=== PATIENT | male | born 2000 | race Caucasian/White ===

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

== ENCOUNTER 2020-06-06 15:32 | Inpatient (IN) ==
[2020-06-06] MEDS ORDERED: DEXAMETHASONE SOD INJ 10 MG/ML VIAL IV ONE (15:50)
[2020-06-06] MEDS ORDERED: SODIUM CHLORIDE 0.9% 1000ML 500 ML IV ONE (15:50)
[2020-06-06] MEDS ORDERED: ALBUTEROL HFA 8 GM INHALER INH ONE (15:50)
--- NOTE | 2020-06-06 16:34 | Emergency Department Note ---
Impression & Plan Hypoxia, SOB (shortness of breath), Leukocytosis, Pneumonia ED Provider Note NAME: JAZZY MCKINNEY AGE: 19 SEX: M : 2000 ARRIVES VIA: Walk-In INFORMANT: [Patient] ED PROVIDER(S): [Garo Escamilla MD] CHIEF COMPLAINT: Cough HISTORY OF PRESENT ILLNESS: The patient is a 19-year-old male presents to the ED with several days of a cough. The cough is worse when he tries to lay down at night. The cough is productive. Patient has also noticed shortness of breath, primarily with exertion. Patient denies any fever or chills. There is no sore throat or stuffy nose. No abdominal pain. No vomiting or diarrhea. Patient states that he did have Covid a few months ago, he was basically asymptomatic except for issues with his taste and smell, he was also somewhat fatigued with the Covid diagnosis. The patient presented today to [facility]. He was hypoxic on their monitor and sent to the ED by ambulance for evaluation. The patient states that he does not feel the same as he did when he had COVID-19 a few months ago. He does admit that his taste and smell is off a bit currently but it is still present. He has had no sick contacts. REVIEW OF SYSTEMS: See HPI for pertinent positives and negatives. A total of ten systems were reviewed and were otherwise negative. PMHx/PSHx: See Below SOCIAL HISTORY: See Below. PHYSICAL EXAM: GENERAL: Patient is in no acute distress. HEENT: No acute trauma, normocephalic atraumatic, mucous membranes moist, no nasal congestion, no scleral icterus. NECK: No stridor, no adenopathy, no meningismus, trachea is midline. LUNGS: No respiratory distress. No obvious wheeze, slightly increased respiratory rate. HEART: Tachycardic, regular rhythm, no murmur. ABDOMEN: Soft, nontender, bowel sounds positive, no hernias, no peritonitis. EXTREMITIES: No cyanosis or edema, full range of motion of all the joints without pain or difficulty, no signs for acute trauma. NEUROLOGIC: Oriented x 3, no acute motor or sensory deficits, no focal weakness. SKIN: No rash, no jaundice, no diaphoresis. DIFFERENTIAL DIAGNOSIS: Reactive airway disease, pneumonia, pneumothorax, COVID-19, influenza, COPD, CHF, infection, cardiac ischemia, pulmonary embolism, bronchitis, musculosk eletal, gastrointestinal, as well as other pathologies. EMERGENCY DEPARTMENT COURSE/PROCEDURES: ECG: Indication was shortness of breath. The ECG shows a normal sinus rhythm with a rate of 98. There is some subtle ST elevation consistent with potential early repole. There appears to be some MS depression present as well. The QTc is 457. There are no PVCs. No old ECGs available for comparison. Continuous Cardiac Monitoring: An order was placed for continuous cardiac monitoring. The monitor shows a rate of 99 with normal sinus rhythm. Critical Care Note: I have personally spent 42 minutes of critical care time in the direct management of this patient. This includes bedside care, interpretation of diagnostic studies, and testing, discussion with consultants, patient, and family members, and other required patient management activities. This 42 minutes is in excess of all separately billable procedures. MEDICAL DECISION MAKING: There is a moderate leukocytosis which would be consistent with infection. No anemia. There is a normal platelet count. INR is mildly elevated at 1.3. No significant electrolyte abnormality or kidney failure. No concerning liver e nzyme elevation. ECG shows a sinus rhythm, no acute ischemia. Cardiac enzyme testing x1 is slightly elevated, this could be consistent with cardiac injury, mismatch or cardiac strain. Covid, influenza and RSV testing were negative. Chest film shows a bilateral patchy pneumonia. Chest CT does not show any PE, bilateral pneumonia was seen. The patient presents tachypneic and short of breath. He was hypoxic. He was maintained on nasal cannula O2. He received a 500 cc saline bolus. He was given IV ceftriaxone, albuterol via MDI, IV Decadron. The patient is aware of his findings, I did speak with him about our work-up results. I spoke with case management, the on-call hospitalist was consulted. With his hypoxia and pneumonia, hospitalization is warranted. Past Med/Surg History Medical History COVID-19 Family History (Updated 06/06/20 @ 18:57 by Justa Quijano DO) Denies family history of Myocardial infarction Stroke Social History Smoking Status: Never smoker Hx Alcohol Use: Yes Alcohol Intake Frequency Comment: 1-2x/week, none recently with feeling unwell Hx Substance Use: Yes Substance Use Type Other:: Occasional marijuana use, but not recently due to feeling unwell Feels Safe at Home: Yes Allergies Allergies Allergy/AdvReac Type Severity Reaction Status Date / Time cat dander Allergy Mild Itchiness Verified 06/06/20 16:02 No Known Drug Allergies Allergy . Verified 06/06/20 16:02 Home Meds Home Medications Medication Instructions Recorded Confirmed No Known Home Medications 06/06/20 06/06/20 Results & Data (ED) Vital Signs Vital Signs - 24 hr 06/06/20 15:35 06/06/20 15:59 06/06/20 16:01 Temperature 36.6 C Temperature Source Oral Pulse Rate 130 H 113 H Pulse Rate from SpO2 Sensor 111 H Pulse Rhythm Regular Pulse Strength Normal Respiratory Rate 22 22 Respiratory Effort / Characteristics Non-Labored Respiratory Depth Normal Respiratory Pattern Regular Blood Pressure 109/63 Blood Pressure Mean 78 Blood Pressure Position Sitting Pulse Oximetry 86 L 88 L 84 L Oxygen Delivery Method Room Air Room Air Room Air Nasal Cannula Oxygen Flow Rate Sepsis Recent Fever Within 48 Hours No Sepsis New/Unexplained Change in Mental Status No Sepsis Action Taken by Nursing No Action Required Oxygen Flow Rate - Titration 6 Pulse Oximetry Post Tiitration 94 06/06/20 16:30 06/06/20 16:41 06/06/20 17:00 Temperature Temperature Source Pulse Rate 103 H 118 H Pulse Rate from SpO2 Sensor 101 H 109 H Pulse Rhythm Pulse Strength Respiratory Rate 22 25 H Respiratory Effort / Characteristics Respiratory Depth Respiratory Pattern Blood Pressure 133/75 108/78 Blood Pressure Mean 94 88 Blood Pressure Position Pulse Oximetry 93 94 97 Oxygen Delivery Method Nasal Cannula Nasal Cannula Nasal Cannula Oxygen Flow Rate 6 6 6 Sepsis Recent Fever Within 48 Hours Sepsis New/Unexplained Change in Mental Status Sepsis Action Taken by Nursing Oxygen Flow Rate - Titration Pulse Oximetry Post Tiitration 06/06/20 17:30 06/06/20 17:40 06/06/20 18:00 Temperature Temperature Source Pulse Rate 105 H 100 H Pulse Rate from SpO2 Sensor 102 H 102 H 99 H Pulse Rhythm Pulse Strength Respiratory Rate 21 24 25 H Respiratory Effort / Characteristics Respiratory Depth Respiratory Pattern Blood Pressure 133/83 Blood Pressure Mean 99 Blood Pressure Position Pulse Oximetry 93 92 93 Oxygen Delivery Method Nasal Cannula Nasal Cannula Oxygen Flow Rate 6 4 Sepsis Recent Fever Within 48 Hours Sepsis New/Unexplained Change in Mental Status Sepsis Action Taken by Nursing Oxygen Flow Rate - Titration Pulse Oximetry Post Tiitration Home Medications Current Medication List: was personally reviewed by me Laboratory Data Attestation: I reviewed the patient's lab results. Result diagrams: 06/06/20 16:50 06/06/20 16:50 Lab Results 06/06/20 06/06/20 06/06/20 Range/Units 16:05 16:05 16:50 WBC (4.8-10.8) K/uL RBC (4.7-6.1) M/uL Hgb (14.0-18.0) g/dL Hct (42-52) % MCV (80-100) fL MCH (25-34) pg MCHC (32-36) g/dL RDW Std Deviation (36.4-46.3) fL RDW Coeff of Jose (11.5-14.5) % Plt Count (130-400) K/uL MPV (7.4-10.4) fL Immature Gran % (Auto) % Neut % (Auto) % Lymph % (Auto) % Weston % (Auto) % Eos % (Auto) % Baso % (Auto) % Neut # (Auto) (1.4-6.5) K/uL Lymph # (Auto) (1.2-3.4) K/uL Weston # (Auto) (0.11-0.59) K/uL Eos # (Auto) (0-0.5) K/uL Baso # (Auto) (0-0.2) K/uL Immature Gran # (Auto) (0.00-0.02) K/uL PT (9.0-12.0) Seconds INR (0.9-1.1) APTT (21.0-31.0) Seconds PTT Ratio Sodium 141 (136-145) mmol/L Potassium 4.0 (3.5-5.1) mmol/L Chloride 109 H (98-107) mmol/L Carbon Dioxide 28 (21-32) mmol/L Anion Gap 4.0 (3-11) BUN 14 (7-18) mg/dl Creatinine 0.90 (0.6-1.4) mg/dl Est Cr Clr Drug Dosing 121.4 ml/min Est GFR ( Amer) 141.0 Est GFR (Non-Af Amer) 121.7 BUN/Creatinine Ratio 15.9 (10-20) Glucose 89 (70-99) mg/dl Calcium 9.3 (8.5-10.1) mg/dl Magnesium 2.4 (1.8-2.4) mg/dl Total Bilirubin 0.8 (0.2-1) mg/dl AST 12 L (15-37) U/L ALT 22 (12-78) U/L Alkaline Phosphatase 79 (45-117) U/L Troponin I 0.055 H* (0-0.045) ng/ml Total Protein 8.1 (6.4-8.2) gm/dl Albumin 3.9 (3.4-5.0) gm/dl Globulin 4.2 H (2.5-4.0) gm/dl Albumin/Globulin Ratio 0.9 (0.9-2) COVID-19 Eval Order CovFluRsv at [facility] SARS-CoV-2 (PCR) NEGATIVE (Negative) Influenza Type A (PCR) Negative (Neg) Influenza Type B (PCR) Negative (Neg) RSV (RT-PCR) Negative (Neg) 06/06/20 06/06/20 Range/Units 16:50 16:50 WBC 15.46 H (4.8-10.8) K/uL RBC 5.42 (4.7-6.1) M/uL Hgb 16.7 (14.0-18.0) g/dL Hct 47.3 (42-52) % MCV 87.3 (80-100) fL MCH 30.8 (25-34) pg MCHC 35.3 (32-36) g/dL RDW Std Deviation 44.7 (36.4-46.3) fL RDW Coeff of Jose 14.0 (11.5-14.5) % Plt Count 260 (130-400) K/uL MPV 10.0 (7.4-10.4) fL Immature Gran % (Auto) 0.7 % Neut % (Auto) 46.3 % Lymph % (Auto) 11.7 % Weston % (Auto) 5.5 % Eos % (Auto) 35.3 % Baso % (Auto) 0.5 % Neut # (Auto) 7.16 H (1.4-6.5) K/uL Lymph # (Auto) 1.81 (1.2-3.4) K/uL Weston # (Auto) 0.85 H (0.11-0.59) K/uL Eos # (Auto) 5.45 H (0-0.5) K/uL Baso # (Auto) 0.08 (0-0.2) K/uL Immature Gran # (Auto) 0.11 H (0.00-0.02) K/uL PT 13.3 H (9.0-12.0) Seconds INR 1.3 H (0.9-1.1) APTT 35.3 H (21.0-31.0) Seconds PTT Ratio 1.3 Sodium (136-145) mmol/L Potassium (3.5-5.1) mmol/L Chloride (98-107) mmol/L Carbon Dioxide (21-32) mmol/L Anion Gap (3-11) BUN (7-18) mg/dl Creatinine (0.6-1.4) mg/dl Est Cr Clr Drug Dosing ml/min Est GFR ( Amer) Est GFR (Non-Af Amer) BUN/Creatinine Ratio (10-20) Glucose (70-99) mg/dl Calcium (8.5-10.1) mg/dl Magnesium (1.8-2.4) mg/dl Total Bilirubin (0.2-1) mg/dl AST (15-37) U/L ALT (12-78) U/L Alkaline Phosphatase (45-117) U/L Troponin I (0-0.045) ng/ml Total Protein (6.4-8.2) gm/dl Albumin (3.4-5.0) gm/dl Globulin (2.5-4.0) gm/dl Albumin/Globulin Ratio (0.9-2) COVID-19 Eval Order SARS-CoV-2 (PCR) (Negative) Influenza Type A (PCR) (Neg) Influenza Type B (PCR) (Neg) RSV (RT-PCR) (Neg) Administered Medications Discontinued Medications Albuterol (Albuterol Hfa 8 Gm Inhaler) 3 puffs INH NOW ONE Stop: 06/06/20 15:51 Last Admin: 06/06/20 16:49 Dose: 3 puffs Documented by: [id number] Dexamethasone (Dexamethasone Sod Inj 10 Mg/Ml Vial) 6 mg IV NOW ONE Stop: 06/06/20 15:51 Last Admin: 06/06/20 16:49 Dose: 6 mg Documented by: [id number] Sodium Chloride (Nss 1000ml) 500 mls @ 999 mls/hr IV .Q31M ONE Stop: 06/06/20 16:20 Last Infusion: 06/06/20 18:46 Dose: 0 mls/hr Documented by: [id number] Admin: 06/06/20 18:08 Dose: 999 mls/hr Documented by: [id number] Ceftriaxone Sodium (Rocephin) 1,000 mg in 50 mls @ 100 mls/hr IV NOW STA Stop: 06/06/20 17:51 Last Infusion: 06/06/20 18:37 Dose: 0 mls/hr Documented by: [id number] Admin: 06/06/20 18:07 Dose: 100 mls/hr Documented by: [id number] Ioversol (Optiray 320 125ml) 116 ml IV ONCE ONE Stop: 06/06/20 17:55 Last Admin: 06/06/20 17:55 Dose: 116 ml Documented by: [id number] Imaging Data Radiologist's Impression: XR chest 1V portable HISTORY: 19 years-old Male SOB acute shortness of breath COMPARISON: None TECHNIQUE: Portable view the chest FINDINGS: Cardiac silhouette is normal. No pneumothorax, pleural effusion or overt pulmonary edema. Ill-defined pulmonary opacities are noted within the mid and lower lung zones. Bones appear normal. No opaque foreign body. IMPRESSION: Opacities of the mid and lower lung zones bilaterally suggests multifocal pneumonia. CT angio chest PE protocol CT DOSE: 421.22 mGy.cm HISTORY: 19 years-old Male with PE. Acute shortness of breath TECHNIQUE: Multiple CTA images of the chest were obtained after the intravenous administration of 116 ml Optiray 320. Coronal and sagittal MIPS were obtained from the axial data set and were submitted for review. All measurements were obtained according to NASCET criteria. A dose lowering technique was utilized adhering to the principles of ALARA. COMPARISON: Chest radiograph of same day FINDINGS: CTA: Heart is normal in size. No pericardial effusion. There is no thoracic aortic aneurysm or dissection. Patency of the imaged great vessels. The pulmonary arterial tree is opacified to the level of the segmental branches and demonstrates no filling defects to suggest thromboembolic disease. The subsegm ental branches are not well visualized secondary to contrast bolus timing. CT CHEST: Unremarkable thyroid. Residual thymic tissue of the anterior mediastinum. Mildly enlarged subcarinal and hilar lymph nodes measure up to 11 mm in short axis. No pleural effusion or pneumothorax. Patchy multifocal groundglass and consolidative opacities are noted within all lobes bilaterally. Bronchial wall thickening is noted with tracheobronchial secretions and bibasilar mucous plugging. No acute process of the imaged upper abdomen. Bones appear intact. Unremarkable soft tissues. IMPRESSION: 1. No pulmonary emboli. 2. Multilobar distribution of patchy groundglass and alveolar opacities compatible with multifocal pneumonia 3. Mildly enlarged mediastinal and hilar lymph nodes are likely reactive. 4. Bronchial wall thickening with bibasilar predominant mucus plugging. Discharge Plan Visit Data Chief Complaint: Illness Stated Complaint: COUGH/SOB/TESTED FOR COVID AWAITING RESULTS ED Provider: Garo Escamilla Discharge Problem: Hypoxia, SOB (shortness of breath), Leukocytosis, Pneumonia Patient Disposition: Admitted As Inpatient Condition: Fair Forms Stand Alone Forms: [employer] Prescriptions Prescriptions: No Action No Known Home Medications RF: 0 Referrals Referrals: [place] [Primary Care Provider] - Discharge Problem: Leukocytosis Qualifiers: Leukocytosis type: unspecified Qualified Code(s): D72.829 - Elevated white blo od cell count, unspecified Pneumonia Qualifiers: Pneumonia type: due to unspecified organism Laterality: bilateral Lung location: unspecified part of lung Qualified Code(s): J18.9 - Pneumonia, unspecified organism
[2020-06-06 16:59] LABS: Influenza A virus by PCR Negative (Neg); Influenza B virus by PCR Negative (Neg); RSV by PCR Negative (Neg); SARS CoV2 RNA(COVID-19) InHosp NEGATIVE (Negative)
[2020-06-06 17:02] LABS: Basophils # (auto) 0.08 K/uL (0-0.2); Basophils % (auto) 0.5 %; Eosinophils # (auto) 5.45 K/uL (0-0.5); Eosinophils % (auto) 35.3 %; Hematocrit (blood only) 47.3 % (42-52); Hemoglobin 16.7 g/dL (14.0-18.0); Immature Granulocytes # (auto) 0.11 K/uL (0.00-0.02); Immature Granulocytes % (auto) 0.7 %; Lymphocytes # (auto) 1.81 K/uL (1.2-3.4); Lymphocytes % (auto) 11.7 %; Mean Corpuscular Hemoglobin 30.8 pg (25-34); Mean Corpuscular Hgb Conc 35.3 g/dL (32-36); Mean Corpuscular Volume 87.3 fL (80-100); Monocytes # (auto) 0.85 K/uL (0.11-0.59); Monocytes % (auto) 5.5 %; Neutrophils # (auto) 7.16 K/uL (1.4-6.5); Neutrophils % (auto) 46.3 %; Platelet Count 260 K/uL (130-400); RDW Standard Deviation 44.7 fL (36.4-46.3); Red Blood Count 5.42 M/uL (4.7-6.1); White Blood Count 15.46 K/uL (4.8-10.8)
[2020-06-06 17:20] LABS: Albumin Level 3.9 gm/dl (3.4-5.0); BUN Creatinine Ratio 15.9 (10-20); Calcium 9.3 mg/dl (8.5-10.1); Creatinine Clr Calc Pharmacy 121.4 ml/min; Est GFR (Non-African American) 121.7; INR 1.3 (0.9-1.1); Magnesium 2.4 mg/dl (1.8-2.4); Partial Thromboplastin Ratio 1.3; Partial Thromboplastin Time 35.3 Seconds (21.0-31.0); Prothrombin Time 13.3 Seconds (9.0-12.0)
[2020-06-06] MEDS ORDERED: cefTRIAXone SODIUM 1,000 MG/50 ML BAG IV STA (17:22)
[2020-06-06 17:27] LABS: Albumin Globulin Ratio 0.9 (0.9-2); Bilirubin,Total 0.8 mg/dl (0.2-1); Globulin 4.2 gm/dl (2.5-4.0); Total Protein 8.1 gm/dl (6.4-8.2); Troponin I 0.055 ng/ml (0-0.045)
--- NOTE | 2020-06-06 17:29 | XRay Report ---
XR chest 1V portable HISTORY: 19 years-old Male SOB acute shortness of breath COMPARISON: None TECHNIQUE: Portable view the chest FINDINGS: Cardiac silhouette is normal. No pneumothorax, pleural effusion or overt pulmonary edema. Ill-defined pulmonary opacities are noted within the mid and lower lung zones. Bones appear normal. No opaque fo reign body. IMPRESSION: Opacities of the mid and lower lung zones bilaterally suggests multifocal pneumonia. ACT 112: Negative or not required by law. The above report was generated using voice recognition software. It may contain grammatical, syntax o r spelling errors. Electronically signed by: Dominic Ventura M.D. 06/06/2020 5:28 PM
[2020-06-06] MEDS ORDERED: OPTIRAY 320 125ml IV ONE (17:54)
--- NOTE | 2020-06-06 18:11 | CT Scan Report ---
CT angio chest PE protocol CT DOSE: 421.22 mGy.cm HISTORY: 19 years-old Male with PE. Acute shortness of breath TECHNIQUE: Multiple CTA images of the chest were obtained after the intravenous administration of 116 ml Optiray 320. Coronal and sagittal MIPS were obtained from the axial data set and were submitted for review. All measurements were obtained according to NASCET criteria. A dose lowering technique w as utilized adhering to the principles of ALARA. COMPARISON: Chest radiograph of same day FINDINGS: CTA: Heart is normal in size. No pericardial effusion. There is no thoracic aortic aneurysm or dissection. Patency of the imaged great vessels. The pulmonary arterial tree is opacified to the level of the se gmental branches and demonstrates no filling defects to suggest thromboembolic disease. The subsegmen kyra branches are not well visualized secondary to contrast bolus timing. CT CHEST: Unremarkable thyroid. Residual thymic tissue of the anterior mediastinum. Mildly enlarged subcarinal and hilar lymph nodes measure up to 11 mm in short axis. No pleural effusion or pneumothorax. Patchy multifocal groundglass and consolidative opacities are noted within all lobes bilaterally. Bronchial wall thickening is noted with tracheobronchial secretions and bibasilar mucous plugging. No acute process of the imaged upper abdomen. Bones appear intact. Unremarkable soft tissues. IMPRESSION: 1. No pulmonary emboli. 2. Multilobar distribution of patchy groundglass and alveolar opacities compatible with multifocal pn eumonia 3. Mildly enlarged mediastinal and hilar lymph nodes are likely reactive. 4. Bronchial wall thickening with bibasilar predominant mucus plugging. ACT 112: Negative or not required by law. The above report was generated using voice recognition software. It may contain grammatical, syntax o r spelling errors. Electronically signed by: Dominic Ventura M.D. 06/06/2020 6:09 PM
--- NOTE | 2020-06-06 19:02 | History & Physical Report ---
Date of Service June 06, 2020 Assessment & Plan (1) Hypoxia: PNA noted on both CXR and CT chest Mucous plugging noted Sx are only with lying down Started on ceftriaxone in the ED, will continue and add azithro for CAP WBC elevated, afebrile Requiring O2 Nebs scheduled COVID, flu neg Hx of COVID + last fall with mild sx and no tx required (2) Elevated troponin: Minimal at 0.055, likely related to demand ischemia Serials pending EKG normal sinus Monitor on tele (3) DVT prophylaxis: SCDs, ambulation History of Present Illness Primary Care Provider: [facility] 19 y/o M who was sent to the ED from [facility] for hypoxia. Pt states that he has been having some SOB when he would lie down over the last few days. He then developed a cough, but again only with lying down. He states he felt a bit winded going up steps, but "nothing major". He went to [facility] for eval and was noted to be hypoxic on RA. He was given a neb tx and sent to the ED. Pt denies fever, chest pain, abd pain, n/v/c/d, LE pain or swelling. Tolerating PO without issue, but does note a decreased appetite. Pt states he feels fine at present, but he is sitting up and hasn't really had any sx unless he was lying down. Pt states he had PNA in 11th grade and this feels similar. He states he used an inhaler at that time, but no hx of asthma or other inhaler use. Pt was dx COVID + in March. His only sx at that time were loss of taste and smell and slight fatigue. He has felt fine since his recovery. Allergies Allergy/AdvReac Type Severity Reaction Status Date / Time cat dander Allergy Mild Itchiness Verified 06/06/20 16:02 No Known Drug Allergies Allergy . Verified 06/06/20 16:02 Home Medications Medication Instructions Recorded Confirmed Type No Known Home Medications 06/06/20 06/06/20 History Past Med/Surg History Medical History COVID-19 Family History (Updated 06/06/20 @ 18:57 by Justa Quijano DO) Denies family history of Myocardial infarction Stroke Social History (Updated 06/06/20 @ 18:57 by Justa Quijano DO) Smoking Status: Never smoker Hx Alcohol Use: Yes Alcohol Intake Frequency Comment: 1-2x/week, none recently with feeling unwell Hx Substance Use: Yes Substance Use Type Other:: Occasional marijuana use, but not recently due to feeling unwell Feels Safe at Home: Yes Review of Systems Review of Systems: Pertinent positives and negatives reviewed in HPI--all others negative Physical Exam Constitutional: WD/WN, vitals as above Eyes: normal visual morales by confrontation and + anicteric sclerae Neck: normal visual inspection and trachea midline Respiratory: normal respiratory effort; no respiratory distress Auscultation: + crackles and + wheezes (scant, expiratory only) Cardiovascular: Rate/Rhythm: regular rhythm and + tachycardic Gastrointestinal (Abdomen): Inspection/Auscultation: abdomen not distended Percussion/Palpation: abdomen soft; abdomen nontender Musculoskeletal: Head/Neck/Chest: normocephalic and head atraumatic negative for edema, peripheral pulses intact Skin: no rashes, warm and dry Neurologic: awake; not confused Speech / Cognition: normal speech Psychiatric: A+Ox3, euthymic affect Results & Data Results & Data ([facility]) Vital Signs (Past 12 Hours) Vital Signs Temp Pulse Resp BP Pulse Ox 06/06/20 18:00 25 H 93 06/06/20 17:40 100 H 24 92 06/06/20 17:30 105 H 21 133/83 93 06/06/20 17:00 118 H 25 H 108/78 97 06/06/20 16:41 94 06/06/20 16:30 103 H 22 133/75 93 06/06/20 16:01 84 L 06/06/20 15:59 113 H 22 88 L 06/06/20 15:35 36.6 C 130 H 22 109/63 86 L Diagnostic Findings CXR: multifocal PNA CTA: b/l multifocal PNA with bronchial thickening and mucous plugging, neg for PE ECG Rhythm: sinus tachycardia PG Care Time/CCT Total # of Minutes Spent Total Time Spent with Patient: Total time spent is greater than 50% in coordination of care (as documented) at patient's floor/unit and/or counseling patient: Coding Level of Care Code 78843 Initial Inpt Care Lvl 3 Diagnoses Hypoxia R09.02 Elevated troponin R77.8 DVT prophylaxis Z29.9
[2020-06-06] MEDS ORDERED: MAGNESIUM HYDROXIDE SUSP 30 ML UDC PO PRN (21:49)
[2020-06-06] MEDS ORDERED: ONDANSETRON INJ 2 MG/ML 2 ML VIAL IV PRN (21:49)
[2020-06-06] MEDS ORDERED: AZITHROMYCIN 500 MG in DEXTROSE 5% 250 ML IV ONE (21:49)
[2020-06-06] MEDS ORDERED: ACETAMINOPHEN 325 MG TAB PO PRN (21:49)
[2020-06-06] MEDS: SODIUM CHLORIDE 0.9% 1000ML 1,000 ML IV SCH (21:57)
[2020-06-06] MEDS: ALBUT/IPRATROP 3MG/0.5MG NEB 3 ML VIAL NEB SCH ×2 (22:26)
[2020-06-07] MEDS: ALBUT/IPRATROP 3MG/0.5MG NEB 3 ML VIAL NEB SCH ×5 (03:09→18:59)
[2020-06-07 04:10] LABS: Basophils # (auto) 0.01 K/uL (0-0.2); Basophils % (auto) 0.1 %; Hematocrit (blood only) 44.7 % (42-52); Hemoglobin 15.3 g/dL (14.0-18.0); Immature Granulocytes # (auto) 0.08 K/uL (0.00-0.02); Immature Granulocytes % (auto) 0.8 %; Lymphocytes # (auto) 1.11 K/uL (1.2-3.4); Lymphocytes % (auto) 11.1 %; Mean Corpuscular Hemoglobin 29.5 pg (25-34); Mean Corpuscular Hgb Conc 34.2 g/dL (32-36); Mean Corpuscular Volume 86.3 fL (80-100); Mean Platelet Volume 9.8 fL (7.4-10.4); Monocytes # (auto) 0.62 K/uL (0.11-0.59); Monocytes % (auto) 6.2 %; Neutrophils % (auto) 80.8 %; Platelet Count 265 K/uL (130-400); RDW Coefficient of Variation 13.5 % (11.5-14.5); RDW Standard Deviation 42.6 fL (36.4-46.3); Red Blood Count 5.18 M/uL (4.7-6.1); White Blood Count 10.02 K/uL (4.8-10.8)
--- NOTE | 2020-06-07 07:44 | Hospitalist Progress Note ---
Date of Service June 07, 2020 Assessment & Plan (1) Hypoxia: PNA noted on both CXR and CT chest Mucous plugging noted, starting mucinex and flutter valve becomes tachycardic with walking, is on ivf Started on ceftriaxone in the ED, will continue plus azithro for CAP Requiring O2 Nebs scheduled COVID, flu rsv neg Hx of COVID + fall 2019 with mild sx and no tx required (2) Elevated troponin: Minimal at 0.055, likely related to demand ischemia EKG normal sinus, to sinus tach, two subseqeunt trops negative, no rub on exam (3) DVT prophylaxis: lovenox, ambulation Admission and Anticipated Discharge Date Admission Date: June 06, 2020 Subjective this pt is doing well, however he does get tachycardic with ambulation and has a Non productive cough Review of Systems Review of Systems: Mild distress and fatigue no headache, blurry or double vision no speech or swallowing issues no chest pain, pressure or palpitations Dyspnea on exertion, productive cough of noyola sputum no abdominal pain, nausea or vomiting, diarrhea or constipation no dysuria, hematuria or frequency no focal joint pain or swelling no back pain, CVA tenderness or radicular pain no bruising, bleeding or rashes no focal signs of weakness or numbness or altered sensation no complaints of anxiety or depression.. Physical Exam Physical Exam: The patient appeared well nourished and normally developed. Vital signs as documented. Head exam is normocephalic atraumatic no scleral icterus Neck is without JVD, thyromegaly, or carotid bruits. Lungs are right-sided rales in all lung morales left side is fairly clear Cardiac exam, Rhythm is regular.. No murmurs, rubs or gallops monitor shows sinus tachycardia with exertion. Abdominal exam reveals normal bowel sounds, soft non tender, no masses Extremities are nonedematous and both pedal pulses are present Neurologic exam is alert and oriented, no focal loss of strength or sensation Skin is without bruises or rashes Psychologically is without concerns for anxiety or depression. Results & Data Results & Data ([facility]) Vital Signs (Past 12 Hours) Vital Signs Temp Pulse Pulse Pulse Resp BP BP 06/07/20 07:24 97.7 F 105 H 18 118/74 06/07/20 07:14 70 18 06/07/20 03:09 84 18 06/07/20 03:00 98.4 F 108 H 16 115/71 06/07/20 00:06 105 H 06/06/20 22:29 95 H 16 06/06/20 22:08 100 H 06/06/20 21:54 98.4 F 96 H 20 121/77 06/06/20 21:29 94 H 18 131/93 Pulse Ox 06/07/20 07:24 90 06/07/20 07:14 93 06/07/20 03:09 93 06/07/20 03:00 90 06/07/20 00:06 06/06/20 22:29 94 06/06/20 22:08 06/06/20 21:54 91 06/06/20 21:29 92 PG Care Time/CCT Total # of Minutes Spent Total Time Spent with Patient: Total time spent is greater than 50% in coordination of care (as documented) at patient's floor/unit and/or counseling patient: Coding Level of Care Code 06074 Subseq Hosp Care Lvl 2 Diagnoses Hypoxia R09.02 Elevated troponin R77.8 DVT prophylaxis Z29.9
--- NOTE | 2020-06-07 09:54 | Electrocardiogram Report ---
Test Reason : Blood Pressure : / mmHG Vent. Rate : 098 BPM Atrial Rate : 098 BPM P-R Int : 136 ms QRS Dur : 090 ms QT Int : 358 ms P-R-T Axes : 083 082 045 degrees QTc Int : 457 ms Normal sinus rhythm ST elevation, consider early repolarization Borderline ECG No previous ECGs available Confirmed by Brandon Alvarado ([id number]) on 06/07/2020 9:53:44 AM Referred By: [facility] Confirmed By:Red Alvarado
[2020-06-07] MEDS: SODIUM CHLORIDE 0.9% 1000ML 1,000 ML IV SCH (10:44)
[2020-06-07] MEDS: AZITHROMYCIN 250 MG in DEXTROSE 5% 250 ML IV SCH (10:50)
[2020-06-07] MEDS ORDERED: KETOROLAC 30 MG/ML VIAL IV ONE (16:42)
[2020-06-07] MEDS ORDERED: ENOXAPARIN INJ 40 MG/0.4 ML SYR SQ SCH (17:00)
[2020-06-07] MEDS ORDERED: SODIUM CHLORIDE 0.9% 1000ML 1,000 ML IV SCH (17:04)
[2020-06-07] MEDS ORDERED: cefTRIAXone SODIUM 1,000 MG in DEXTROSE 5% 50 ML IV SCH (18:00)
[2020-06-07] MEDS: IBUPROFEN 600 MG TAB PO SCH (21:33)
[2020-06-07] MEDS: guaiFENesin 600 MG TABCR PO SCH (21:33)
[2020-06-08] MEDS: ALBUT/IPRATROP 3MG/0.5MG NEB 3 ML VIAL NEB SCH ×3 (08:03→15:29)
--- NOTE | 2020-06-08 08:40 | XCELERA ---
[id number]
[2020-06-08] MEDS: IBUPROFEN 600 MG TAB PO SCH (09:01)
[2020-06-08] MEDS: guaiFENesin 600 MG TABCR PO SCH (09:01)
[2020-06-08 09:32] VITALS: O2SAT 95
--- NOTE | 2020-06-08 10:21 | Electrocardiogram Report ---
Test Reason : Blood Pressure : / mmHG Vent. Rate : 072 BPM Atrial Rate : 072 BPM P-R Int : 144 ms QRS Dur : 094 ms QT Int : 388 ms P-R-T Axes : 074 082 059 degrees QTc Int : 424 ms Sinus rhythm with marked sinus arrhythmia Early repolarization Abnormal ECG When compared with ECG of 07-JUN-2020 16:29, (unconfirmed) Vent. rate has decreased BY [address] elevation now present in Inferior leads Non-specific change in ST segment in Anterior leads T wave inversion no longer evident in Inferior leads T wave inversion less evident in Anterior leads Confirmed by Brandon Alvarado ([id number]) on 06/08/2020 10:20:56 AM Referred By: [facility] Confirmed By:Red Alvarado
[2020-06-08 11:47] VITALS: BP 109/71; PULSE 91; TEMP 97.2
[2020-06-08] MEDS: AZITHROMYCIN 250 MG in DEXTROSE 5% 250 ML IV SCH (12:29)
--- NOTE | 2020-06-08 18:46 | Discharge Summary ---
Date of Service June 08, 2020 Admission HPI Per Admitting Provider 19 y/o M who was sent to the ED from [facility] for hypoxia. Pt states that he has been having some SOB when he would lie down over the last few days. He then developed a cough, but again only with lying down. He states he felt a bit winded going up steps, but "nothing major". He went to [facility] for eval and was noted to be hypoxic on RA. He was given a neb tx and sent to the ED. Pt denies fever, chest pain, abd pain, n/v/c/d, LE pain or swelling. Tolerating PO without issue, but does note a decreased appetite. Pt states he feels fine at present, but he is sitting up and hasn't really had any sx unless he was lying down. Pt states he had PNA in 11th grade and this feels similar. He states he used an inhaler at that time, but no hx of asthma or other inhaler use. Pt was dx COVID + in March. His only sx at that time were loss of taste and smell and slight fatigue. He has felt fine since his recovery. Principal Diagnosis atypical pneumonia Discharge Data Allergies Allergy/AdvReac Type Severity Reaction Status Date / Time cat dander Allergy Mild Itchiness Verified 06/06/20 16:02 No Known Drug Allergies Allergy . Verified 06/06/20 16:02 Consultations 06/06/20 18:34 ED Decision to Admit Stat Ordered Studies 06/06/20 15:53 CT angio chest PE protocol Stat Hospital Course (1) Hypoxia: PNA noted on both CXR and CT chest, looks, atypical pneumonia Mucous plugging noted, levaquin mucinex and flutter valve now off oxygen COVID, flu rsv neg Hx of COVID + fall 2019 with mild sx and no tx required (2) Elevated troponin: Minimal at 0.055, likely related to demand ischemia EKG normal sinus, to sinus tach, two subseqeunt trops negative, no rub on exam Echo was normal Total Time Total Time Spent Total Time Spent (In Minutes): greater than 30 minutes are required to complete this discharge Discharge Plan Discharge Items Patient Disposition: Home - Self-Care Reason For Visit: PNA Discharge Diagnosis: atypical pneumonia Condition on Discharge: Fair Activity: Per Instructions section Non-emergency contact: Primary Care Provider Call non-emergency contact if: you have any medication questions and your symptoms worsen Follow-up/Referrals: [facility] [Primary Care Provider] - Diet: Regular Addtl Attending Provider Instructions: please finish all of your antibiotics \\ [facility] one week please have good food/hydration good rest and slowly increase your exercise and acitivy Pending Studies at Discharge: No Stand-Alone Forms: My [facility], Smoking Cessation Medications and DC Order Prescriptions: New levofloxacin 500 mg tablet 500 mg PO DAILY 10 Days Qty: 10 RF: 0 guaifenesin [Mucinex] 600 mg Tablet Extended Release 12hr 1,200 mg PO Q12H Qty: 30 RF: 0 No Action No Known Home Medications RF: 0 Discharge Orders: Discharge Order (Routine); Ordered 06/08/20 Ordered By: Mark Stuart/Other Patient Handouts: What Is Pneumonia? Admission Data Admit Date/Time: 06/06/20 18:54 Attending Provider: Mark Beckman Admit Provider: Justa Quijano Primary Care Provider: [facility] Other Providers: Justa Quijano Other Interventions: Discharge Summary Assessment (RN) Last Done: 06/08/20 13:51 Coding Level of Care Code D/C Day Management >30 mins Diagnoses Hypoxia R09.02 Elevated troponin R77.8
[2020-06-09] MEDS ORDERED: AZITHROMYCIN 250 MG TAB PO SCH (11:00)
== END 2020-06-08 15:36 | disposition home or self-care (01) | DRG 194 ==
LOC: ED 15:32 → SUATTDRO 18:54 → 2W 18:54